=== PATIENT | female | born 1995 | race Caucasian/White ===

== ENCOUNTER → 2017-03-28 | Emergency (ER) | payer OTHER ==
[~2017-03-28] VITALS: Ht 165.1 cm; Wt 53.5 kg
[~2017-03-28] MED LIST: FOLIC ACID1 MG PO; OSTERA TABLET1 EACH PO; PLAQUENIL PO; PREDNISONE10 MG PO; PRENATAL 19 TAB1 TAB PO; SYNTHROID PO
== END | disposition home or self-care (01) ==
LOC: ER 12:41
DX: R10.2 Pelvic and perineal pain (principal)